=== PATIENT | female | born 1950 | race African-American/Black ===

== ENCOUNTER 2024-09-25 12:53 | Inpatient (IN) | payer MEDICARE, BC, OTHER ==
[2024-09-25] MEDS ORDERED: Ondansetron PF 4 MG/2 ML Vial ONE (13:24)
[2024-09-25] MEDS ORDERED: Morphine 4 MG/ML VIAL ONE (13:26)
[2024-09-25 14:06] LABS: #Basophils 0.04 10x3/uL (0.0-0.2); %Basophils 0.4 % (0.0-1.0); %Eosinophils 0.5 % (0.0-10.0); %Lymphocytes 15.9 % (21.0-51.0); %Monocytes 7.3 % (0.0-10.0); %Neutrophils 75.5 % (42.0-75.0); Hematocrit 38.4 % (36.0-47.0); Hemoglobin 12.4 g/dL (12.0-16.0); Mean Corpuscular HGB CONC 32.3 g/dL (32.0-36.0); Mean Corpuscular Hemoglobin 28.8 pg (27.0-31.0); Mean Corpuscular Volume 89.1 fL (78.0-98.0); Mean Platelet Volume 10.8 fL (7.4-10.4); Platelet Count 221 10x3/uL (130-400); RBC Distribution Width 14.7 % (11.5-14.5); Red Blood Cell (RBC) Count 4.31 mill/uL (4.20-5.40)
[2024-09-25 14:18] LABS: ALT (SGPT) 29 U/L (8-55); AST (SGOT) 30 U/L (5-34); Albumin 3.2 g/dL (3.4-4.8); Alkaline Phosphatase 70 U/L (40-110); Anion Gap 14 mmol/L (10-20); BUN (Urea Nitrogen) 16 mg/dL (9.8-20.1); Bilirubin, Total 0.4 mg/dL (0.2-1.2); Calc. Creatinine Clearance 0 mL/min (70-130); Calcium 9.1 mg/dL (7.8-10.44); Carbon Dioxide 18 mmol/L (23-31); Chloride 110 mmol/L (98-107); Estimated GFR 89; Globulin 4.2 g/dL (2.4-3.5); Glucose 126 mg/dL (83-110); Lipase 14 U/L (8-78); Magnesium 1.5 mg/dL (1.6-2.6); Potassium 3.5 mmol/L (3.5-5.1); Protein, Total 7.4 g/dL (5.8-8.1); Sodium 138 mmol/L (136-145)
[2024-09-25 14:24] LABS: Troponin I Less than 0.010 ng/mL (< 0.028)
[2024-09-25] MEDS ORDERED: Magnesium 2 GM/50 ML BAG (IN WATER) ONE (14:51)
[2024-09-25] MEDS ORDERED: Morphine 2 MG/ML VIAL ONE (14:51)
[2024-09-25 15:33] LABS: Bacteria/HPF 2+ HPF (None Seen); Bilirubin Negative (Negative); Blood, Urine Trace (Negative); CAUTI Indications for Culture Pelvic or flank pain; Clarity Turbid (Clear); Glucose, Urine (Dipstick) Normal (Negative); Ketone, Urine Negative (Negative); Leukocyte 500 Leu/uL (Negative); Nitrite Negative (Negative); Protein, Urine (Dipstick) 20 mg/dL (Neg-Trace); Specific Gravity, Urine 1.013 (1.002-1.036); Squamous Epithelial 0-3 HPF (0-3); Urobilinogen Normal mg/dL (Less than 2); WBC/HPF Greater than 50 HPF (0-3)
[2024-09-25 15:34] LABS: Urine Culture Reflex Yes Yes
[2024-09-25] MEDS ORDERED: cefTRIAXone (ROCEPHIN) 2 GM VIAL ONE (16:08)
[2024-09-25] MEDS ORDERED: Sodium Chloride 0.9% 100 ML ONE (16:10)
[2024-09-25] MEDS ORDERED: Ondansetron PF 4 MG/2 ML Vial IVP PRN (16:31)
[2024-09-25] MEDS ORDERED: Morphine 2 MG/ML VIAL SLOW IVP PRN (16:33)
[2024-09-25 16:47] LABS: Lactic Acid 2.79 mmol/L (0.5-2.2)
[2024-09-25 18:41] VITALS: BMI 34.2
[2024-09-25] MEDS: Sodium Chloride 0.9% 1,000 ML IV SCH (19:04)
[2024-09-25] MEDS: Famotidine/PF 20 mg/2ml Vial SLOW IVP SCH (21:13)
[2024-09-25] MEDS: metroNIDAZOLE 500 MG in Premix 1 BAG IVPB SCH (21:13)
[2024-09-26 04:53] LABS: #Basophils 0.03 10x3/uL (0.0-0.2); #Eosinophils Less than 0.03 10x3/uL (0.0-0.7); %Basophils 0.2 % (0.0-1.0); %Eosinophils 0.1 % (0.0-10.0); %Lymphocytes 11.7 % (21.0-51.0); %Monocytes 6.7 % (0.0-10.0); Hematocrit 35.3 % (36.0-47.0); Mean Corpuscular Hemoglobin 29.1 pg (27.0-31.0); Mean Corpuscular Volume 85.7 fL (78.0-98.0); Mean Platelet Volume 10.4 fL (7.4-10.4); Platelet Count 195 10x3/uL (130-400); RBC Distribution Width 14.8 % (11.5-14.5); Red Blood Cell (RBC) Count 4.12 mill/uL (4.20-5.40)
[2024-09-26 05:23] LABS: Anion Gap 11 mmol/L (10-20); BUN (Urea Nitrogen) 16 mg/dL (9.8-20.1); Calc. Creatinine Clearance 97 mL/min (70-130); Calcium 8.3 mg/dL (7.8-10.44); Carbon Dioxide 21 mmol/L (23-31); Chloride 107 mmol/L (98-107); Estimated GFR 82; Glucose 118 mg/dL (83-110); Magnesium 1.7 mg/dL (1.6-2.6); Potassium 3.2 mmol/L (3.5-5.1); Sodium 136 mmol/L (136-145)
[2024-09-26] MEDS: Acetaminophen 325 MG TAB PO PRN (05:31)
[2024-09-26] MEDS: Enoxaparin 40 MG (0.4 mL) SYRINGE SC SCH (08:27)
[2024-09-26 09:10] LABS: Lactic Acid 1.49 mmol/L (0.5-2.2)
[2024-09-26] MEDS: Potassium Chloride 20 MEQ TAB PO SCH (09:26)
[2024-09-26] MEDS: Sodium Chloride 0.9% 1,000 ML IV SCH (09:28)
[2024-09-26] MEDS: Magnesium 2 GM/50 ML(in water) 2 GM in Premix 1 BAG IVPB SCH (09:35)
[2024-09-26] MEDS: traMADol HCl 50 MG TAB PO PRN (11:59)
[2024-09-26] MEDS: Senokot S 8.6-50 MG TAB PO SCH ×2 (12:16→21:08)
[2024-09-26] MEDS: Polyethylene Glycol 3350 17 GM Packet PO SCH (12:16)
[2024-09-26] MEDS: Polyvinyl Alcohol 1.4%/Povidone 0.6% Opth Drops EA EYE SCH (13:56)
[2024-09-26] MEDS: cefTRIAXone\\ROCEPHIN 2 GM in Sodium Chloride 0.9% 100 ML IVPB SCH (16:10)
[2024-09-26] MEDS: Atorvastatin Calcium 40 MG TAB PO SCH (21:06)
[2024-09-26] MEDS: Fluticasone Propionate Nasal Spray 16 gm Bottle NASAL SCH (21:06)
[2024-09-26] MEDS: Magnesium Oxide 400 MG TAB PO SCH (21:07)
[2024-09-26] MEDS: Isosorbide Mononitrate 30 MG ER.TAB PO SCH (21:07)
[2024-09-27 04:45] LABS: Anion Gap 11 mmol/L (10-20); BUN (Urea Nitrogen) 14 mg/dL (9.8-20.1); Calc. Creatinine Clearance 98 mL/min (70-130); Calcium 8.3 mg/dL (7.8-10.44); Carbon Dioxide 18 mmol/L (23-31); Chloride 109 mmol/L (98-107); Estimated GFR 83; Glucose 93 mg/dL (83-110); Potassium 4.3 mmol/L (3.5-5.1); Sodium 134 mmol/L (136-145)
[2024-09-27] MEDS: Ezetimibe 10 MG TAB PO SCH (08:14)
[2024-09-27] MEDS: Clopidogrel Bisulfate 75 MG TAB PO SCH (08:15)
[2024-09-27] MEDS: Allopurinol 100 MG TAB PO SCH (08:15)
[2024-09-27] MEDS: Polyethylene Glycol 3350 17 GM Packet PO SCH (08:15)
[2024-09-27] MEDS: Aspirin 81 mg Enteric Coated Tablet PO SCH (08:15)
[2024-09-27] MEDS: Pantoprazole DR 40 MG TAB PO SCH (08:15)
[2024-09-27] MEDS: Amlodipine 5 MG TAB PO SCH (08:16)
[2024-09-27] MEDS: metroNIDAZOLE 500 MG in Premix 1 BAG IVPB SCH (22:30)
[2024-09-28 04:15] LABS: #Basophils 0.03 10x3/uL (0.0-0.2); %Basophils 0.3 % (0.0-1.0); %Eosinophils 3.1 % (0.0-10.0); %Lymphocytes 17.8 % (21.0-51.0); %Monocytes 9.8 % (0.0-10.0); %Neutrophils 68.7 % (42.0-75.0); Hematocrit 31.5 % (36.0-47.0); Hemoglobin 10.6 g/dL (12.0-16.0); Mean Corpuscular HGB CONC 33.7 g/dL (32.0-36.0); Mean Corpuscular Volume 86.1 fL (78.0-98.0); Mean Platelet Volume 11.4 fL (7.4-10.4); Platelet Count 171 10x3/uL (130-400); RBC Distribution Width 14.8 % (11.5-14.5); Red Blood Cell (RBC) Count 3.66 mill/uL (4.20-5.40)
[2024-09-28 04:39] LABS: Anion Gap 12 mmol/L (10-20); BUN (Urea Nitrogen) 14 mg/dL (9.8-20.1); Calc. Creatinine Clearance 96 mL/min (70-130); Calcium 8.1 mg/dL (7.8-10.44); Carbon Dioxide 20 mmol/L (23-31); Chloride 107 mmol/L (98-107); Estimated GFR 80; Glucose 96 mg/dL (83-110); Magnesium 1.8 mg/dL (1.6-2.6); Potassium 3.7 mmol/L (3.5-5.1); Sodium 135 mmol/L (136-145)
[2024-09-28] MEDS: Saccharomyces boulardii 250 MG CAP PO SCH (09:31)
[2024-09-28] MEDS: Piperacillin/Tazobactam 3.375 GM in Sodium Chloride 0.9% 100 ML IVPB SCH ×2 (14:21→18:21)
[2024-09-28] MEDS: Docusate 100 MG CAP PO SCH (14:22)
[2024-09-28] MEDS: Lactulose 20 GM (30 mL) UDCUP PO SCH (14:22)
[2024-09-28] MEDS: Lactated Ringer's 1,000 ML IV SCH (14:48)
[2024-09-29 05:33] LABS: #Basophils 0.05 10x3/uL (0.0-0.2); %Basophils 0.7 % (0.0-1.0); %Eosinophils 5.3 % (0.0-10.0); %Lymphocytes 22.3 % (21.0-51.0); %Monocytes 13.4 % (0.0-10.0); %Neutrophils 57.9 % (42.0-75.0); Hematocrit 32.4 % (36.0-47.0); Hemoglobin 10.8 g/dL (12.0-16.0); Mean Corpuscular HGB CONC 33.3 g/dL (32.0-36.0); Mean Corpuscular Hemoglobin 28.5 pg (27.0-31.0); Mean Corpuscular Volume 85.5 fL (78.0-98.0); Mean Platelet Volume 11.4 fL (7.4-10.4); Platelet Count 198 10x3/uL (130-400); RBC Distribution Width 14.5 % (11.5-14.5); Red Blood Cell (RBC) Count 3.79 mill/uL (4.20-5.40)
[2024-09-29 05:51] LABS: Anion Gap 11 mmol/L (10-20); BUN (Urea Nitrogen) 10 mg/dL (9.8-20.1); Calc. Creatinine Clearance 101 mL/min (70-130); Carbon Dioxide 20 mmol/L (23-31); Chloride 108 mmol/L (98-107); Estimated GFR 84; Glucose 104 mg/dL (83-110); Magnesium 1.6 mg/dL (1.6-2.6); Potassium 3.4 mmol/L (3.5-5.1); Sodium 136 mmol/L (136-145)
[2024-09-29] MEDS ORDERED: Electrolyte Replacement Protocol 1 EACH FS SCH (08:00)
[2024-09-29] MEDS: Potassium Chloride 20 MEQ TAB PO SCH (08:36)
[2024-09-29] MEDS: Magnesium 2 GM/50 ML(in water) 2 GM in Premix 1 BAG IVPB SCH (09:30)
[2024-09-30 04:38] LABS: #Basophils Less than 0.03 10x3/uL (0.0-0.2); %Basophils 0.3 % (0.0-1.0); %Eosinophils 5.9 % (0.0-10.0); %Lymphocytes 23.3 % (21.0-51.0); %Neutrophils 58.2 % (42.0-75.0); Hematocrit 31.2 % (36.0-47.0); Hemoglobin 10.5 g/dL (12.0-16.0); Mean Corpuscular HGB CONC 33.7 g/dL (32.0-36.0); Mean Corpuscular Volume 86.2 fL (78.0-98.0); Mean Platelet Volume 10.8 fL (7.4-10.4); Platelet Count 215 10x3/uL (130-400); RBC Distribution Width 14.6 % (11.5-14.5); Red Blood Cell (RBC) Count 3.62 mill/uL (4.20-5.40)
[2024-09-30 05:38] LABS: Anion Gap 12 mmol/L (10-20); BUN (Urea Nitrogen) 7 mg/dL (9.8-20.1); Calc. Creatinine Clearance 106 mL/min (70-130); Calcium 8.1 mg/dL (7.8-10.44); Carbon Dioxide 20 mmol/L (23-31); Chloride 107 mmol/L (98-107); Estimated GFR 90; Glucose 100 mg/dL (83-110); Magnesium 1.7 mg/dL (1.6-2.6); Potassium 3.6 mmol/L (3.5-5.1); Sodium 135 mmol/L (136-145)
[2024-09-30] MEDS: Magnesium 2 GM/50 ML(in water) 2 GM in Premix 1 BAG IVPB SCH (06:33)
[2024-09-30 11:47] VITALS: TEMP 98.1
[2024-09-30] MEDS: Losartan 25 MG TAB PO SCH (12:39)
[2024-09-30] MEDS: Bisoprolol Fumarate 5 MG TAB PO SCH (12:39)
[2024-09-30] MEDS ORDERED: Bisoprolol Fumarate 5 MG TAB PO SCH (12:45)
[2024-09-30 13:39] VITALS: BP 151/76
[2024-10-01] MEDS ORDERED: Losartan 25 MG TAB PO SCH (09:00)
== END 2024-09-30 13:59 | disposition home or self-care (01) | DRG 392 ==
LOC: ERS 12:53 → 2NO 16:25
PROVIDERS: ADMIT Internal Medicine; ATTEND Internal Medicine
DX: K52.9 Noninfective gastroenteritis and colitis, unspecified (principal); I25.10 Atherosclerotic heart disease of native coronary artery without angina pectoris; K21.9 Gastro-esophageal reflux disease without esophagitis; E78.5 Hyperlipidemia, unspecified; G47.33 Obstructive sleep apnea (adult) (pediatric); E83.42 Hypomagnesemia; K59.00 Constipation, unspecified; R00.1 Bradycardia, unspecified; E87.6 Hypokalemia; B95.5 Unspecified streptococcus as the cause of diseases classified elsewhere; Z95.818 Presence of other cardiac implants and grafts; I25.2 Old myocardial infarction; Z90.49 Acquired absence of other specified parts of digestive tract; Z90.710 Acquired absence of both cervix and uterus
CPT/HCPCS: 36415; 71045; 74177; 80048; 80053; 81001; 83605; 83690; 83735; 83880; 84145; 84484; 85025; 86141; 87077; 87086; 93005; 96365; 96367; 96375; 96376; J0696; J1650; J2272; J2405; J2543; J3475; J3490; J7030; J7120